=== PATIENT | male | born 1980 | race Caucasian/White ===

== ENCOUNTER 2020-04-25 22:34 | Emergency (ER) | payer SELFPAY ==
[~2020-04-25] VITALS: Ht 182.9 cm; Wt 74.8 kg
--- NOTE | 2020-04-25 22:35 | NUR ---
PT BROUGHT IN BY [facility] TO [facility]
--- NOTE | 2020-04-25 22:42 | NUR ---
[facility] in ED - 04/25/20 at 2243 by [email or web address] PT TAKEN TO [facility] WITH STEADY GAIT.
[2020-04-25 22:43] VITALS: BP 131/89
--- NOTE | 2020-04-25 23:20 | NUR ---
[facility] EVALUATING PT AT BEDSIDE.
[2020-04-25 23:28] VITALS: BP 131/89
--- NOTE | 2020-04-25 23:28 | NUR ---
PATIENT BIB [facility]. PATIENT EXAMINED BY DR. AGUILAR. PATIENT MEDICALLY CLEARED AND RELEASED IN CUSTODY IN STABLE CONDITION. ORIGINAL PRE-BOOK FORM GIVEN TO OFFICER AMADOU.
--- NOTE | 2020-04-25 23:28 | NUR ---
Patient discharged with v/s stable. Written and verbal after care instructions given and explained. Patient verbalized understanding. Ambulatory with in custody BY P. All questions addressed prior to discharge. Advised to follow up with PMD.
== END 2020-04-25 23:28 ==
LOC: MED 22:34
DX: F10.99 Alcohol use, unspecified with unspecified alcohol-induced disorder (principal); Z02.89 Encounter for other administrative examinations; V89.2XXA Person injured in unspecified motor-vehicle accident, traffic, initial encounter; Y93.89 Activity, other specified; Y92.89 Other specified places as the place of occurrence of the external cause; Y99.8 Other external cause status
CPT/HCPCS: 99283